=== PATIENT | female | born 1975 | race Caucasian/White ===

== ENCOUNTER → 2016-11-22 | Outpatient (CLI) | payer OTHER ==
[~2016-11-22] MED LIST: ALEVE220 MG PO; DESYREL-DPS50 MG PO; MOTRIN-DPS800 MG PO; PERCOCET 5 DPS1 TAB PO; PRED FORTE 1% DP5 ML OU; RESTASIS1 EACH OU; TYLENOL DPS325 MG PO
== END | disposition home or self-care (01) ==
LOC: RAD.S 15:18
DX: Z12.31 Encounter for screening mammogram for malignant neoplasm of breast (principal)